=== PATIENT | male | born 1990 | race Caucasian/White ===

== ENCOUNTER 2017-08-15 22:50 | Emergency (ER) | payer OTHER ==
[~2017-08-15] VITALS: Ht 172.7 cm; Wt 81.3 kg
[~2017-08-15 22:50] MED LIST: AUGMENTIN875 MG PO; BACTRIM,SEPT1 TABLET PO; CREATINE; IMITREX25 MG PO; KEFLEX500 MG PO; NAPROSYN500 MG PO; NAPROXEN500 MG PO; NO MEDS; NOHOMEMEDS; OXYCODONE HCL15 MG PO; REGLAN10 MG PO; ROXICODONE5 MG PO; TESTOSTERONE PO; TRAMADOL HCL50 MG PO; ULTRAM50 MG PO; VITAMIN D22000 UNIT PO; XANAX0.25 MG PO
[2017-08-16] MEDS ORDERED: BACTRIM,SEPT1 TABLET PO (02:39)
[2017-08-16] MEDS ORDERED: KEFLEX500 MG PO (02:39)
[2017-08-16 03:00] VITALS: BP 132/79
== END 2017-08-16 03:00 | disposition home or self-care (01) ==
LOC: EXP 22:50 → EME 22:50 → EXP 08-16 03:00
DX: L03.113 Cellulitis of right upper limb (principal)
CPT/HCPCS: 99281; 99284; J0696

== ENCOUNTER 2017-11-16 13:44 | Emergency (ER) | payer OTHER ==
[~2017-11-16] VITALS: Ht 172.7 cm; Wt 80.6 kg
[2017-11-16 15:26] VITALS: BP 128/70
== END 2017-11-16 15:27 | disposition home or self-care (01) ==
LOC: EME 13:44
PROC: 0HQFXZZ Repair Right Hand Skin, External Approach (ICD-10-PCS; principal; 2017-11-16)
DX: S61.411A Laceration without foreign body of right hand, initial encounter (principal); W27.8XXA Contact with other nonpowered hand tool, initial encounter; F17.200 Nicotine dependence, unspecified, uncomplicated
CPT/HCPCS: 99281; 99284